=== PATIENT | male | born 1940 | race Caucasian/White ===

== ENCOUNTER → 2022-01-15 09:36 | Outpatient (CLI) | payer MEDICARE, BC, SELFPAY ==
--- NOTE | ~2022-01-15 | MR_ITS ---
EXAMINATION: MR hip LT wo con DATE: 01/15/2022 10:56 INDICATION: Left hip pain. TECHNIQUE: Magnetic resonance imaging (MRI) of the left hip was performed without intravenous contras t. Sequences included axial and coronal PD-weighted FS FSE and axial T1-weighted FSE of the pelvis. S equences of the hip included 2D FIESTA, T1-weighted fast GRE, and axial, coronal, and sagittal PD-edward ghted FS FSE. COMPARISON: Left hip and pelvis radiographs 01/06/2022 FINDINGS: Bones/cartilage: Bone alignment is normal. There is severe osteoarthritis of the hips including full-thickness cartila ge loss superiorly and osteophytes. Left hip joint demonstrates prominent subchondral cysts in superi or femoral head and adjacent acetabulum with cortical remodeling. Labrum: There are tears of the bilateral pamella. Fluid: There is no hip joint effusion. Left-sided iliopsoas bursitis is noted. Soft tissues: There is a partial tear of right hamstring origin. There is severe tendinopathy of left hamstring romi gin. The iliopsoas tendons are normal. There is moderate right and a minimus tendinopathy. There is m ild left gluteus minimus tendinopathy. The prostate is moderately enlarged. There is a right inguinal hernia containing fat and a portion of the bladder. IMPRESSION: 1. Severe osteoarthritis of the hips. 2. Left-sided iliopsoas bursitis. 3. Right inguinal hernia containing fat and a portion of the bladder. Reviewed, dictated and finalized at location E.
== END ==
PROVIDERS: PCP Nurse Practitioner Family; Visit Provider Orthopaedic Surgery
DX: M25.552 Pain in left hip (principal); M16.0 Bilateral primary osteoarthritis of hip; M71.552 Other bursitis, not elsewhere classified, left hip; K40.90 Unilateral inguinal hernia, without obstruction or gangrene, not specified as recurrent
CPT/HCPCS: 73721

== ENCOUNTER 2022-02-14 09:15 | Outpatient (RCR) | payer MEDICARE, BC, SELFPAY ==
[2022-01-24 12:30] VITALS: BP_SYST 95
--- NOTE | 2022-01-24 13:32 | PTOPEVAL ---
PHYSICAL THERAPY EVALUATION AND PLAN OF CARE 01-24-22 Thank you for referring Dylan Lundberg to [facility] for the diagnosis of L shoulder OA. Dylan is scheduled to be seen for therapy? 2 x/week for 4 weeks. Please review, sign, date and return this plan of care ZACH. I agree with and certify that the following plan of care is medically necessary. Referring Physician Date Attending Provider: Zurdo Garza MD Past Medical History Source of Past Medical History Recalled from Previous Visit, Confirmed with Patient/Family Neurological History Hx Neurological Disorders No Significant History Cardiovascular History Hx Hypertension Yes: meds Hx Other Cardiac Disorders Yes: cardiac stent Respiratory History Hx Respiratory Disorders No Significant History Gastrointestinal History Hx Gastrointestinal Disorders No Significant History Musculoskeletal History Hx Orthopedic Surgery Yes: B carpal tunnel surgeries Hx Spinal Surgery Yes: lumbar surgery- discectomy Hx Other Musculoskeletal Disorders Yes: L hip pain; R knee injections; Endocrine History Hx Diabetes Yes: meds control Other History Hx Other Medical Conditions Yes: 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 Evaluation Information Problem Diagnosis L shoulder arthritis Onset December Subjective Information no injury or trauma to Query Text:As Reported By Patient/ shoulder, gradual increase in Family pain; received injection at last dr karissa and shoulder pain is less; Diagnostic Tests X-Rays For This Problem Yes: severe GH and A-C joint arthritis Previous Treatments Previous Treatments For This Problem no previous treatment for shoulder Prior Level of Function Activity Level (Last 3 Months) Hand Dominance Right Activity of Daily Living Ability Independent Indoor/Home Mobility Independent Community Mobility Independent Stairs Ability Independent Functional Cognition (Planning, Shopping Independent , Taking Medications) Cooking Yes Cleaning Yes Laundry Yes Shopping Yes Driving Yes Home Setting Home Type House Living Situation With Spouse Mobility Assistive Devices (Used Last 3 Cane Months) Comments Additional Prior Level of Function does yard work--yesterday, Comments picked up gum balls, 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
--- NOTE | 2022-02-21 11:04 | PCPTNOTE ---
pt called after his appt time for reeval to cancel due to car problems. 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
--- NOTE | 2022-02-28 13:21 | PCPTNOTE ---
PHYSICAL THERAPY DISCHARGE 02-28-22 Attending Provider: Zurdo Garza MD Patient:Dylan Lundberg Date of :1940 Dylan has not returned for any further treatments since 02/14/2022, therefore he will be discharged at this time. He had received 6 PT sessions, for L shoulder OA, from January 24 to February 14; he called and canceled the reeval due to car problems and did not reschedule. The goals were not assessed, but at the last session, he was improved with his shoulder ROM and strength. Thank you for referring Mr. Lundberg to [facility]. Please review, sign, date and return this discharge summary ZACH. I have been updated about the patient's current status and I agree with discharge from the above service at this time. Referring Physician Date
== END 2022-02-28 15:38 | disposition home or self-care (01) ==
LOC: ANHPT 09:15
PROVIDERS: PCP Family Medicine; Visit Provider Orthopaedic Surgery
DX: M19.012 Primary osteoarthritis, left shoulder (principal)
CPT/HCPCS: 97014; 97110; 97140; 97161; 97530; G0283

== ENCOUNTER 2022-07-04 08:44 | Outpatient (CLI) | payer MEDICARE, BC, SELFPAY ==
[2022-07-04 20:31] LABS: Basophils Absolute Auto 0.1 K/mm3 (0.0-0.1); Basophils Percent Auto 0.6 % (0.2-1.2); Eosinophils Absolute Auto 0.4 K/mm3 (0-0.3); Eosinophils Percent Auto 4.6 % (0-4.4); Hematocrit 41.7 % (42.0-52.0); Hemoglobin 13.1 g/dL (14.0-18.0); Immature Granulocyte Absolute 0.03 K/mm3 (0.00-0.031); Immature Granulocyte Percent A 0.4 % (0-0.5); Lymphocytes Absolute Auto 2.46 K/mm3 (0.9-3.2); Lymphocytes Percent Auto 31.2 % (18.3-44.2); Mean Corpuscular HGB Conc 31.4 g/dl (32-36); Mean Corpuscular Hemoglobin 28.9 pg (26-34); Mean Corpuscular Volume 92.1 fl (80-100); Mean Platelet Volume 10.3 fl (7.4-10.4); Monocytes Absolute Auto 0.8 K/mm3 (0.1-0.6); Monocytes Percent Auto 10.1 % (2.6-8.5); Neutrophils Absolute Auto 4.2 K/mm3 (1.3-6.7); Neutrophils Percent Auto 53.1 % (45.5-73.1); Platelet Count Result 176 k/mm3 (150-375); Red Blood Count 4.53 M/mm3 (4.6-6.20); Red Cell Distribution Width 14.6 % (11.5-14.5); White Blood Count 7.9 K/mm3 (4.5-10.0)
[2022-07-04 20:43] LABS: Alanine Aminotransferase 16 U/L (6-50); Albumin Level 4.3 g/dL (3.5-5.1); Alkaline Phosphatase 104 U/L (38-126); Anion Gap 13 mmol/L (8-16); Aspartate Amino Transferase 39 U/L (17-59); Blood Urea Nitrogen 18 mg/dL (9-20); Calcium 9.5 mg/dL (8.4-10.2); Carbon Dioxide 26 mmol/L (22-30); Chloride 103 mmol/L (98-107); Cholesterol 101 mg/dL (0-200); Estimated Glomerular Filt Rate > 60; Glucose 147 mg/dL (65-110); HDL Direct 34 mg/dL; Potassium 4.2 mmol/L (3.4-5.0); Sodium 142 mmol/L (137-145); Triglycerides 64 mg/dL (<150)
[2022-07-04 20:53] LABS: Hemoglobin A1C 7.1 % (<5.7)
[2022-07-04 20:54] LABS: LDL Cholesterol Direct 43 mg/dL
[2022-07-04 21:02] LABS: Creatinine Urine 87.8 mg/dL
[2022-07-04 21:06] LABS: MALB Creatinine Ratio 17.4 mg/g (0-30); Microalbumin Urine Random 15.3 mg/L (0-16.7)
[2022-07-04 21:23] LABS: Vitamin D 25 Hydroxy 43.8 ng/mL
== END 2022-07-04 08:45 | disposition home or self-care (01) ==
LOC: ANHGOSHLAB 08:48
PROVIDERS: PCP Family Medicine; Visit Provider Nurse Practitioner Family
DX: E11.9 Type 2 diabetes mellitus without complications (principal); I10 Essential (primary) hypertension; E03.9 Hypothyroidism, unspecified; E78.5 Hyperlipidemia, unspecified; E55.9 Vitamin D deficiency, unspecified
CPT/HCPCS: 36415; 80053; 80061; 82043; 82306; 83036; 84443; 85025

== ENCOUNTER 2023-01-06 08:16 | Outpatient (CLI) | payer MEDICARE, SELFPAY ==
[2023-01-06 19:08] LABS: Alanine Aminotransferase 21 U/L (6-50); Albumin Level 4.4 g/dL (3.5-5.1); Alkaline Phosphatase 97 U/L (38-126); Anion Gap 10 mmol/L (8-16); Aspartate Amino Transferase 26 U/L (17-59); Bilirubin,Total 0.9 mg/dL (0.2-1.3); Blood Urea Nitrogen 19 mg/dL (9-20); Calcium 9.8 mg/dL (8.4-10.2); Carbon Dioxide 27 mmol/L (22-30); Chloride 103 mmol/L (98-107); Cholesterol 102 mg/dL (0-200); Estimated Glomerular Filt Rate > 60; Glucose 125 mg/dL (65-110); HDL Direct 40 mg/dL; Potassium 4.3 mmol/L (3.4-5.0); Sodium 140 mmol/L (137-145); Triglycerides 68 mg/dL (<150)
[2023-01-06 19:09] LABS: Basophils Absolute Auto 0.1 K/mm3 (0.0-0.1); Basophils Percent Auto 0.9 % (0.2-1.2); Eosinophils Absolute Auto 0.4 K/mm3 (0-0.3); Hematocrit 41.4 % (42.0-52.0); Hemoglobin 13.3 g/dL (14.0-18.0); Immature Granulocyte Absolute 0.02 K/mm3 (0.00-0.031); Immature Granulocyte Percent A 0.3 % (0-0.5); Lymphocytes Absolute Auto 2.06 K/mm3 (0.9-3.2); Lymphocytes Percent Auto 31.7 % (18.3-44.2); Mean Corpuscular HGB Conc 32.1 g/dl (32-36); Mean Corpuscular Volume 93.5 fl (80-100); Mean Platelet Volume 10.3 fl (7.4-10.4); Monocytes Absolute Auto 0.7 K/mm3 (0.1-0.6); Monocytes Percent Auto 11.1 % (2.6-8.5); Neutrophils Absolute Auto 3.2 K/mm3 (1.3-6.7); Platelet Count Result 154 k/mm3 (150-375); Red Blood Count 4.43 M/mm3 (4.6-6.20); Red Cell Distribution Width 13.6 % (11.5-14.5); White Blood Count 6.5 K/mm3 (4.5-10.0)
[2023-01-06 19:18] LABS: LDL Cholesterol Direct 39 mg/dL
[2023-01-06 20:04] LABS: Creatinine Urine 68.9 mg/dL
[2023-01-06 20:06] LABS: MALB Creatinine Ratio 122.1 mg/g (0-30); Microalbumin Urine Random 84.1 mg/L (0-16.7)
[2023-01-06 20:21] LABS: Vitamin D 25 Hydroxy > 126.0 ng/mL
== END 2023-01-06 08:17 | disposition home or self-care (01) ==
LOC: ANHGOSHLAB 08:18
PROVIDERS: PCP Family Medicine; Visit Provider Nurse Practitioner Family
DX: E55.9 Vitamin D deficiency, unspecified (principal); I10 Essential (primary) hypertension; E11.9 Type 2 diabetes mellitus without complications; E78.5 Hyperlipidemia, unspecified
CPT/HCPCS: 36415; 80053; 80061; 82043; 82306; 83036; 84443; 85025